=== PATIENT | female | born 1950 | race African-American/Black ===

== ENCOUNTER 2020-06-08 14:46 | Inpatient (IN) ==
[2020-06-08] MEDS ORDERED: GLUCAGON 1 MG VIAL IM PRN (16:53)
[2020-06-08] MEDS ORDERED: DEXTROSE 50% 25 GM/50 ML VIAL IV PRN (16:53)
[2020-06-08 17:26] LABS: Basophils % 0.5 % (0.0-0.8); Hematocrit 42.8 VOL% (35.7-47.0); Hemoglobin 14.7 GM/DL (12.0-16.0); Immature Granulocytes % 0.2 %; Immature Granulocytes Absolute 0.01 #; Lymphocytes # 0.6 10*3/uL (1.4-4.0); Mean Corpuscular HGB Conc 34.3 GM/DL (32-36); Mean Corpuscular Volume 82.3 FL (87-102); Monocytes % 13.7 % (1.7-12.7); NRBC # 0.02 10*3/uL; Neutrophils % 71.6 % (38.7-73.9); Platelet Count 78 T/CUMM (130-400); Red Cell Distribution Width 23.4 % (9.3-17.3); White Blood Count 4.2 T/CUMM (4-12)
[2020-06-08 17:45] LABS: Albumin 2.7 G/DL (3.4-5.0); Bilirubin,Total 3.9 MG/DL (0.2-1.0); Calcium 9.7 MG/DL (8.5-10.1); Osmolality,Calculated 290.1 MOS/KG (273-304); Potassium 4.2 MMOL/L (3.5-5.1); Total Protein 8.1 G/DL (6.4-8.3)
[2020-06-08] MEDS ORDERED: SODIUM CHLORIDE 0.9% 1,000 ML IV SCH (18:30)
[2020-06-08] MEDS: ENOXAPARIN 30 MG/0.3 ML SYRINGE SUBCUT SCH (20:31)
[2020-06-08 21:15] LABS: Troponin I 0.353 NG/ML (0.00-0.045)
[2020-06-08] MEDS: DEXTROSE 5% 1,000 ML IV SCH (23:04)
[2020-06-09 00:25] LABS: Troponin I 0.296 NG/ML (0.00-0.045)
[2020-06-09 02:59] LABS: Basophils % 0.6 % (0.0-0.8); Eosinophils % 0.3 % (0.00-10.9); Hematocrit 39.9 VOL% (35.7-47.0); Immature Granulocytes % 0.3 %; Immature Granulocytes Absolute 0.01 #; Lymphocytes # 0.5 10*3/uL (1.4-4.0); Lymphocytes % 13.1 % (21.3-54.2); Mean Corpuscular HGB Conc 35.1 GM/DL (32-36); Mean Corpuscular Volume 80.1 FL (87-102); Mean Platelet Volume 10.6 FL (9.6-12.0); Monocytes % 13.1 % (1.7-12.7); NRBC # 0.02 10*3/uL; Neutrophils % 72.6 % (38.7-73.9); Platelet Count 70 T/CUMM (130-400); Red Blood Count 4.98 MC/CUMM (3.8-5.5); Red Cell Distribution Width 22.9 % (9.3-17.3); White Blood Count 3.4 T/CUMM (4-12)
[2020-06-09 03:28] LABS: Albumin 2.6 G/DL (3.4-5.0); Bilirubin,Total 3.4 MG/DL (0.2-1.0); Calcium 9.4 MG/DL (8.5-10.1); Osmolality,Calculated 286.4 MOS/KG (273-304); Total Protein 7.6 G/DL (6.4-8.3)
[2020-06-09 09:18] LABS: Bilirubin,Urine Negative (Negative); Blood, Urine Negative (Negative); Glucose,Urine (UA) Negative (Negative); Hyaline Casts,Urine 12 /LPF (0-3); Ketones,Urine Negative (Negative); Mucus,Urine Occasional /LPF (Occasional); Nitrite,Urine Negative (Negative); Protein,Urine 30 MG/DL; RBC,Urine <1 /HPF (0-4); Squamous Epithelial Cell,Urine Occasional /HPF (0-10); Urine Appearance CLEAR (Clear); Urine Color Amber (Yellow); Urine Specific Gravity 1.012 (1.001-1.035); Urine Urobilinogen < 2.0 EU/DL (0.2-1.0); WBC,Urine <1 /HPF (0-6)
[2020-06-09] MEDS: DEXTROSE 5% 1,000 ML IV SCH (17:58)
[2020-06-09] MEDS ORDERED: SIMVASTATIN 40 MG TABLET PO SCH (21:00)
[2020-06-09] MEDS: LIOTHYRONINE 25 MCG TABLET PO SCH (21:52)
[2020-06-09] MEDS: ENOXAPARIN 30 MG/0.3 ML SYRINGE SUBCUT SCH (21:52)
[2020-06-10 06:15] LABS: Basophils % 0.8 % (0.0-0.8); Eosinophils % 0.3 % (0.00-10.9); Hematocrit 41.3 VOL% (35.7-47.0); Hemoglobin 14.6 GM/DL (12.0-16.0); Lymphocytes # 0.5 10*3/uL (1.4-4.0); Lymphocytes % 12.6 % (21.3-54.2); Mean Corpuscular HGB Conc 35.4 GM/DL (32-36); Mean Corpuscular Volume 81.1 FL (87-102); Monocytes % 13.2 % (1.7-12.7); Neutrophils % 73.1 % (38.7-73.9); Platelet Count 83 T/CUMM (130-400); Red Blood Count 5.09 MC/CUMM (3.8-5.5); White Blood Count 3.6 T/CUMM (4-12)
[2020-06-10 06:26] LABS: Troponin I 0.356 NG/ML (0.00-0.045)
[2020-06-10 06:39] LABS: Albumin 2.6 G/DL (3.4-5.0); Bilirubin,Total 3.8 MG/DL (0.2-1.0); Calcium 9.5 MG/DL (8.5-10.1); Osmolality,Calculated 280.7 MOS/KG (273-304); Potassium 3.7 MMOL/L (3.5-5.1)
[2020-06-10] MEDS: CHOLECALCIFEROL 1,000 UNIT TABLET PO SCH (09:44)
[2020-06-10] MEDS: LIOTHYRONINE 25 MCG TABLET PO SCH ×2 (09:46→21:06)
[2020-06-10 12:50] LABS: INR 1.3; PT Patient Result 13.9 SECS (9.8-11.9)
[2020-06-10] MEDS ORDERED: METOPROLOL TARTRATE 5 MG/5 ML VIAL IV ONE (13:58)
[2020-06-10] MEDS: SODIUM BICARB INJ 50 MEQ in DEXTROSE 5% NACL 0.22% 1,000 ML IV SCH (15:09)
[2020-06-10 16:58] LABS: RBC,Peritoneal Fluid > 100000 T/CUMM
[2020-06-10 20:51] LABS: Neutrophils,Peritoneal Fluid 44 %
[2020-06-10] MEDS ORDERED: cefTRIAXone 1,000 MG in SYRINGE 1 EACH IV ONE (21:00)
[2020-06-10] MEDS: VENLAFAXINE 75 MG TABLET PO SCH (21:06)
[2020-06-10] MEDS: ASCORBIC ACID 500 MG TABLET PO SCH (21:06)
[2020-06-11 07:12] LABS: Basophils % 0.8 % (0.0-0.8); Eosinophils % 1.1 % (0.00-10.9); Hematocrit 41.6 VOL% (35.7-47.0); Hemoglobin 14.5 GM/DL (12.0-16.0); Immature Granulocytes % 0.3 %; Immature Granulocytes Absolute 0.01 #; Lymphocytes # 0.4 10*3/uL (1.4-4.0); Lymphocytes % 11.8 % (21.3-54.2); Mean Corpuscular HGB Conc 34.9 GM/DL (32-36); Mean Corpuscular Volume 80.5 FL (87-102); Mean Platelet Volume 10.5 FL (9.6-12.0); Monocytes % 14.8 % (1.7-12.7); Neutrophils % 71.2 % (38.7-73.9); Platelet Count 81 T/CUMM (130-400); Red Blood Count 5.17 MC/CUMM (3.8-5.5); Red Cell Distribution Width 23.2 % (9.3-17.3); White Blood Count 3.6 T/CUMM (4-12)
[2020-06-11 07:29] LABS: Platelet Estimate Decreased; Target Cells 1+
[2020-06-11 07:30] LABS: Anisocytosis 2+; Macrocytosis 1+; Poikilocytosis Slight
[2020-06-11 07:37] LABS: Risk Ratio 2.45; Thyroid Stimulating Hormone 1.43 uIU/ml (0.358-3.74); VLDL CHOLESTEROL 12.8 MG/DL
[2020-06-11 07:40] LABS: Total Protein 7.3 G/DL (6.4-8.3); Uric Acid 12.2 MG/DL (2.6-6.0)
[2020-06-11 07:46] LABS: Albumin 2.2 G/DL (3.4-5.0); Bilirubin,Total 2.8 MG/DL (0.2-1.0); Calcium 8.8 MG/DL (8.5-10.1); Osmolality,Calculated 284.2 MOS/KG (273-304); Potassium 3.8 MMOL/L (3.5-5.1); Total Protein 7.1 G/DL (6.4-8.3)
[2020-06-11] MEDS ORDERED: COENZYME Q10 50 MG PO SCH (09:00)
[2020-06-11] MEDS: CHOLECALCIFEROL 1,000 UNIT TABLET PO SCH (09:16)
[2020-06-11] MEDS: LIOTHYRONINE 25 MCG TABLET PO SCH ×2 (09:16→21:57)
[2020-06-11] MEDS: ASCORBIC ACID 500 MG TABLET PO SCH ×2 (09:16→21:57)
[2020-06-11] MEDS: VENLAFAXINE 75 MG TABLET PO SCH ×2 (09:16→21:57)
[2020-06-11] MEDS ORDERED: APIXABAN 2.5 MG TABLET PO SCH (13:00)
[2020-06-11] MEDS: SODIUM BICARB INJ 50 MEQ in DEXTROSE 5% NACL 0.22% 1,000 ML IV SCH (14:23)
[2020-06-12 06:33] LABS: Basophils % 0.5 % (0.0-0.8); Hemoglobin 14.3 GM/DL (12.0-16.0); Immature Granulocytes % 0.3 %; Immature Granulocytes Absolute 0.01 #; Lymphocytes # 0.4 10*3/uL (1.4-4.0); Lymphocytes % 11.1 % (21.3-54.2); Mean Corpuscular HGB Conc 34.9 GM/DL (32-36); Mean Corpuscular Volume 81.8 FL (87-102); Mean Platelet Volume 10.1 FL (9.6-12.0); Monocytes % 14.7 % (1.7-12.7); Neutrophils % 72.4 % (38.7-73.9); Platelet Count 84 T/CUMM (130-400); Red Blood Count 5.01 MC/CUMM (3.8-5.5); Red Cell Distribution Width 23.3 % (9.3-17.3); White Blood Count 3.9 T/CUMM (4-12)
[2020-06-12 06:55] LABS: Osmolality,Calculated 277.5 MOS/KG (273-304)
[2020-06-12 07:11] LABS: Hypochromasia 1+; Microcytosis 1+; Platelet Estimate Decreased
[2020-06-12] MEDS: VENLAFAXINE 75 MG TABLET PO SCH ×2 (08:36→20:45)
[2020-06-12] MEDS: SODIUM BICARB INJ 50 MEQ in DEXTROSE 5% NACL 0.22% 1,000 ML IV SCH (08:36)
[2020-06-12] MEDS: CHOLECALCIFEROL 1,000 UNIT TABLET PO SCH (08:36)
[2020-06-12] MEDS: LIOTHYRONINE 25 MCG TABLET PO SCH ×2 (08:36→20:46)
[2020-06-12] MEDS: ASCORBIC ACID 500 MG TABLET PO SCH ×2 (08:36→20:45)
[2020-06-12 09:40] LABS: Immunoglobulin A (Chem) 998 MG/DL (70-400); Immunoglobulin G (Chem) 1350 MG/DL (700-1600); Immunoglobulin M (Chem) 181 MG/DL (40-230); Total Protein (Chem) 7.3 G/DL (6.4-8.3)
[2020-06-12 11:08] LABS: Albumin (SPE) 3.5 G/DL (3.2-5.3); Albumin (SPE) Rel % 48.3 %; Alpha 1 (SPE) 0.2 G/DL (0.1-0.4); Alpha 1 (SPE) Rel % 3.1 %; Alpha 2 (SPE) 0.5 G/DL (0.4-1.0); Alpha 2 (SPE) Rel % 6.4 %; Beta (SPE) 0.8 G/DL (0.5-1.1); Beta (SPE) Rel % 10.3 %; Gamma (SPE) 2.3 G/DL (0.7-1.7); Gamma (SPE) Rel % 31.9 %
[2020-06-13] MEDS ORDERED: ONDANSETRON 4 MG/2 ML VIAL IV PRN (00:08)
[2020-06-13 06:10] LABS: Basophils % 0.8 % (0.0-0.8); Eosinophils # 0.1 10*3/uL (0.0-0.87); Eosinophils % 1.4 % (0.00-10.9); Hematocrit 42.2 VOL% (35.7-47.0); Hemoglobin 14.6 GM/DL (12.0-16.0); Immature Granulocytes % 0.3 %; Immature Granulocytes Absolute 0.01 #; Lymphocytes # 0.5 10*3/uL (1.4-4.0); Lymphocytes % 12.8 % (21.3-54.2); Mean Corpuscular HGB Conc 34.6 GM/DL (32-36); Mean Corpuscular Volume 82.1 FL (87-102); Mean Platelet Volume 10.2 FL (9.6-12.0); Monocytes % 13.6 % (1.7-12.7); Neutrophils % 71.1 % (38.7-73.9); Platelet Count 91 T/CUMM (130-400); Red Blood Count 5.14 MC/CUMM (3.8-5.5); Red Cell Distribution Width 23.1 % (9.3-17.3); White Blood Count 3.7 T/CUMM (4-12)
[2020-06-13 06:37] LABS: Calcium 8.5 MG/DL (8.5-10.1); Osmolality,Calculated 274.5 MOS/KG (273-304); Potassium 4.2 MMOL/L (3.5-5.1)
[2020-06-13 07:04] LABS: Platelet Estimate Decreased
[2020-06-13 07:05] LABS: Anisocytosis 2+; Burr Cells Few; Poikilocytosis Slight; Spherocytes Few; Target Cells 1+
[2020-06-13] MEDS: ASCORBIC ACID 500 MG TABLET PO SCH ×2 (08:30→21:11)
[2020-06-13] MEDS: CHOLECALCIFEROL 1,000 UNIT TABLET PO SCH (08:31)
[2020-06-13] MEDS: LIOTHYRONINE 25 MCG TABLET PO SCH ×2 (08:31→21:11)
[2020-06-13] MEDS: VENLAFAXINE 75 MG TABLET PO SCH ×2 (08:31→21:11)
[2020-06-13] MEDS ORDERED: AMIODARONE INJ 150 MG in DEXTROSE 5% 100 ML IV ONE (09:59)
[2020-06-13] MEDS ORDERED: AMIODARONE INJ 450 MG in DEXTROSE 5% 241 ML IV SCH (10:00)
[2020-06-13] MEDS: PANTOPRAZOLE 40 MG TABLET PO SCH ×2 (10:33→21:11)
[2020-06-13] MEDS: AMIODARONE INJ 450 MG in DEXTROSE 5% 241 ML IV SCH (16:10)
[2020-06-14] MEDS: AMIODARONE INJ 450 MG in DEXTROSE 5% 241 ML IV SCH ×2 (07:06→22:00)
[2020-06-14 07:46] LABS: Basophils % 0.4 % (0.0-0.8); Hemoglobin 15.6 GM/DL (12.0-16.0); Immature Granulocytes % 0.7 %; Immature Granulocytes Absolute 0.03 #; Lymphocytes # 0.7 10*3/uL (1.4-4.0); Lymphocytes % 16.3 % (21.3-54.2); Mean Corpuscular HGB Conc 34.7 GM/DL (32-36); Mean Corpuscular Volume 82.4 FL (87-102); Mean Platelet Volume 10.6 FL (9.6-12.0); Monocytes % 13.8 % (1.7-12.7); NRBC # 0.02 10*3/uL; Neutrophils % 68.8 % (38.7-73.9); Platelet Count 95 T/CUMM (130-400); Red Blood Count 5.46 MC/CUMM (3.8-5.5); Red Cell Distribution Width 23.2 % (9.3-17.3); White Blood Count 4.5 T/CUMM (4-12)
[2020-06-14] MEDS: PANTOPRAZOLE 40 MG TABLET PO SCH ×2 (08:43→20:10)
[2020-06-14] MEDS: VENLAFAXINE 75 MG TABLET PO SCH ×2 (08:43→20:11)
[2020-06-14] MEDS: LIOTHYRONINE 25 MCG TABLET PO SCH ×2 (08:43→20:10)
[2020-06-14] MEDS: CHOLECALCIFEROL 1,000 UNIT TABLET PO SCH (08:43)
[2020-06-14] MEDS: ASCORBIC ACID 500 MG TABLET PO SCH ×2 (08:43→20:11)
[2020-06-14] MEDS: AMIODARONE 200 MG TABLET PO SCH (08:44)
[2020-06-14 09:54] LABS: Osmolality,Calculated 265.2 MOS/KG (273-304); Potassium 5.1 MMOL/L (3.5-5.1)
[2020-06-14 10:09] LABS: Immuno Free Light Chain Kappa 12.21 MG/DL (0.33-1.94); Immuno Free Light Chain Lambda 10.62 MG/DL (0.57-2.63); Immuno Free Light Chain Ratio 1.15 MG/DL (0.26-1.65)
[2020-06-14 10:17] LABS: Hemoglobin A1 (Alkaline) 63.3 % (96.5-98.5); Hemoglobin A2 (Alkaline) 1.7 % (1.5-3.5)
[2020-06-14] MEDS: CETIRIZINE 10 MG TABLET PO SCH (12:56)
[2020-06-15] MEDS: PANTOPRAZOLE 40 MG TABLET PO SCH (08:59)
[2020-06-15] MEDS: VENLAFAXINE 75 MG TABLET PO SCH (08:59)
[2020-06-15] MEDS: LIOTHYRONINE 25 MCG TABLET PO SCH (09:00)
[2020-06-15] MEDS: ASCORBIC ACID 500 MG TABLET PO SCH (09:00)
[2020-06-15] MEDS: CHOLECALCIFEROL 1,000 UNIT TABLET PO SCH (09:00)
[2020-06-15] MEDS: CETIRIZINE 10 MG TABLET PO SCH (09:01)
[2020-06-15] MEDS: AMIODARONE 200 MG TABLET PO SCH (09:01)
[2020-06-15 13:16] VITALS: BP 84/58
[2020-06-15] MEDS: AMIODARONE INJ 450 MG in DEXTROSE 5% 241 ML IV SCH (14:49)
== END 2020-06-15 16:07 | disposition home health service (06) | DRG 683 ==
LOC: N.TELEN → SUATTDRO 16:07
PROVIDERS: ADMIT Internal Medicine; ATTEND Hospitalist

== ENCOUNTER 2020-06-24 03:57 | Inpatient (IN) ==
[2020-06-24] MEDS ORDERED: ASPIRIN 325 MG TABLET PO STA (04:10)
[2020-06-24] MEDS ORDERED: SODIUM CHLORIDE 0.9% 1,000 ML IV STA (04:10)
[2020-06-24] MEDS ORDERED: ONDANSETRON 4 MG/2 ML VIAL IV ONE (04:30)
[2020-06-24] MEDS ORDERED: AMIODARONE INJ 150 MG in DEXTROSE 5% 100 ML IV ONE (04:30)
[2020-06-24 04:37] LABS: Hematocrit 46.6 VOL% (35.7-47.0); Hemoglobin 16.8 GM/DL (12.0-16.0); Immature Granulocytes % 0.3 %; Immature Granulocytes Absolute 0.02 #; Lymphocytes # 0.4 10*3/uL (1.4-4.0); Lymphocytes % 5.2 % (21.3-54.2); Mean Corpuscular HGB Conc 36.1 GM/DL (32-36); Mean Corpuscular Volume 80.2 FL (87-102); Mean Platelet Volume 9.8 FL (9.6-12.0); Monocytes % 7.1 % (1.7-12.7); NRBC # 0.02 10*3/uL; Neutrophils % 87.4 % (38.7-73.9); Platelet Count 131 T/CUMM (130-400); Red Blood Count 5.81 MC/CUMM (3.8-5.5); Red Cell Distribution Width 22.6 % (9.3-17.3); White Blood Count 7.2 T/CUMM (4-12)
[2020-06-24 04:52] LABS: INR 1.3; PT Patient Result 13.7 SECS (9.8-11.9)
[2020-06-24 05:02] LABS: Albumin 2.3 G/DL (3.4-5.0); Bilirubin,Total 3.4 MG/DL (0.2-1.0); Calcium 9.5 MG/DL (8.5-10.1); Osmolality,Calculated 283.8 MOS/KG (273-304); Total Protein 7.6 G/DL (6.4-8.3)
[2020-06-24 05:26] LABS: Bacteria,Urine Occasional /HPF (Few); Bilirubin,Urine Negative (Negative); Blood, Urine Negative (Negative); Glucose,Urine (UA) Negative (Negative); Hyaline Casts,Urine 1 /LPF (0-3); Ketones,Urine Negative (Negative); Mucus,Urine Occasional /LPF (Occasional); Nitrite,Urine Negative (Negative); Protein,Urine Negative; RBC,Urine 7 /HPF (0-4); Urine Appearance CLEAR (Clear); Urine Color Amber (Yellow); Urine Specific Gravity 1.012 (1.001-1.035); Urine Urobilinogen < 2.0 EU/DL (0.2-1.0); WBC,Urine <1 /HPF (0-6)
[2020-06-24] MEDS ORDERED: ACETAMINOPHEN 325 MG TABLET PO PRN (06:23)
[2020-06-24] MEDS ORDERED: GLUCAGON 1 MG VIAL IM PRN (06:23)
[2020-06-24] MEDS ORDERED: hydrALAZINE 20 MG/1 ML VIAL IV PRN (06:23)
[2020-06-24] MEDS ORDERED: ALUMINUM/MAGNES/SIMETH MAX STR 30 ML UDCUP PO PRN (06:23)
[2020-06-24] MEDS ORDERED: diphenhydrAMINE CAP 25 MG CAPSULE PO PRN (06:23)
[2020-06-24] MEDS ORDERED: MORPHINE 4 MG/1 ML VIAL IV PRN (06:23)
[2020-06-24] MEDS ORDERED: NICOTINE 21 MG/24 HR PATCH TRANSDERM PRN (06:23)
[2020-06-24] MEDS: ONDANSETRON 4 MG/2 ML VIAL IV PRN (14:30)
[2020-06-24] MEDS ORDERED: oxyCODONE IR 5 MG TABLET PO PRN (16:09)
[2020-06-24] MEDS ORDERED: COLCHICINE 0.6 MG CAPSULE PO PRN (16:09)
[2020-06-24] MEDS ORDERED: DILTIAZEM 50 MG/10 ML VIAL IV STA (19:59)
[2020-06-24] MEDS ORDERED: SIMVASTATIN 40 MG TABLET PO SCH (21:00)
[2020-06-24] MEDS: ASCORBIC ACID 500 MG TABLET PO SCH (22:13)
[2020-06-24] MEDS: LIOTHYRONINE 25 MCG TABLET PO SCH (22:14)
[2020-06-24] MEDS: MAGNESIUM OXIDE 400 MG TABLET PO SCH (22:14)
[2020-06-24] MEDS: VENLAFAXINE 100 MG TABLET PO SCH (22:17)
[2020-06-25] MEDS: ONDANSETRON 4 MG/2 ML VIAL IV PRN ×3 (00:58→23:14)
[2020-06-25 03:25] LABS: Albumin 2.3 G/DL (3.4-5.0); Bilirubin,Total 3.6 MG/DL (0.2-1.0); Calcium 9.1 MG/DL (8.5-10.1); Osmolality,Calculated 273.5 MOS/KG (273-304); Total Protein 7.5 G/DL (6.4-8.3)
[2020-06-25 05:59] LABS: Hematocrit 45.5 VOL% (35.7-47.0); Hemoglobin 16.3 GM/DL (12.0-16.0); Immature Granulocytes % 0.7 %; Immature Granulocytes Absolute 0.07 #; Lymphocytes # 0.3 10*3/uL (1.4-4.0); Lymphocytes % 3.4 % (21.3-54.2); Mean Corpuscular HGB Conc 35.8 GM/DL (32-36); Mean Corpuscular Volume 80.7 FL (87-102); Mean Platelet Volume 9.7 FL (9.6-12.0); Monocytes % 6.8 % (1.7-12.7); NRBC # 0.02 10*3/uL; Neutrophils % 89.1 % (38.7-73.9); Platelet Count 108 T/CUMM (130-400); Red Blood Count 5.64 MC/CUMM (3.8-5.5); Red Cell Distribution Width 22.6 % (9.3-17.3); White Blood Count 9.5 T/CUMM (4-12)
[2020-06-25 06:05] LABS: INR 1.3
[2020-06-25 06:25] LABS: Lymphocytes 3 % (20-55); Platelet Estimate Decreased; Segmented Neutrophils 92 % (50-85); Target Cells Few; Total Cells Counted 100
[2020-06-25] MEDS ORDERED: ASPIRIN 325 MG TABLET PO SCH (09:00)
[2020-06-25] MEDS ORDERED: PANTOPRAZOLE 40 MG TABLET PO SCH (09:00)
[2020-06-25] MEDS ORDERED: cefTRIAXone 2,000 MG in SODIUM CHLORIDE 0.9% 100 ML IV SCH (09:00)
[2020-06-25] MEDS ORDERED: cefTAZidime 2,000 MG in SYRINGE 1 EACH IV SCH (09:00)
[2020-06-25] MEDS: DICLOFENAC 1% GEL 100 GM TUBE TOP SCH (09:40)
[2020-06-25] MEDS: SODIUM CHLORIDE 0.9% 1,000 ML IV SCH (14:10)
[2020-06-25] MEDS: CALCIUM (CARBONATE) 600 MG TABLET PO SCH (14:11)
[2020-06-25] MEDS: LIOTHYRONINE 25 MCG TABLET PO SCH ×2 (14:11→21:20)
[2020-06-25] MEDS: VENLAFAXINE 100 MG TABLET PO SCH ×2 (14:12→21:21)
[2020-06-25] MEDS: MAGNESIUM OXIDE 400 MG TABLET PO SCH ×2 (14:12→21:20)
[2020-06-25] MEDS: ASCORBIC ACID 500 MG TABLET PO SCH ×2 (14:12→21:21)
[2020-06-25] MEDS: FUROSEMIDE 40 MG TABLET PO SCH (14:12)
[2020-06-25] MEDS ORDERED: DIGOXIN 0.5 MG/2 ML AMP IV ONE (14:20)
[2020-06-25] MEDS: AMIODARONE 200 MG TABLET PO SCH (14:40)
[2020-06-25] MEDS: ASPIRIN CHEW 81 MG TABLET PO SCH (14:40)
[2020-06-25] MEDS: CHOLECALCIFEROL 1,000 UNIT TABLET PO SCH (14:40)
[2020-06-25] MEDS: ALBUMIN 25% 12.5 GM in PREMIX 1 EACH IV SCH ×2 (14:41→22:38)
[2020-06-25] MEDS ORDERED: AMIODARONE INJ 450 MG in DEXTROSE 5% 241 ML IV SCH (16:00)
[2020-06-25] MEDS ORDERED: MIRTAZAPINE 15 MG TABLET PO SCH (21:00)
[2020-06-25] MEDS: PANTOPRAZOLE 40 MG VIAL IV SCH (21:19)
[2020-06-25] MEDS: AMIODARONE INJ 450 MG in DEXTROSE 5% 241 ML IV SCH (22:50)
[2020-06-26] MEDS: SODIUM CHLORIDE 0.9% 1,000 ML IV SCH ×2 (01:54→15:45)
[2020-06-26 05:45] LABS: Basophils % 0.2 % (0.0-0.8); Hemoglobin 14.6 GM/DL (12.0-16.0); Immature Granulocytes % 0.3 %; Immature Granulocytes Absolute 0.02 #; Lymphocytes # 0.3 10*3/uL (1.4-4.0); Lymphocytes % 3.8 % (21.3-54.2); Mean Corpuscular HGB Conc 34.8 GM/DL (32-36); Mean Corpuscular Volume 81.9 FL (87-102); Monocytes % 7.2 % (1.7-12.7); NRBC # 0.07 10*3/uL; Neutrophils % 88.5 % (38.7-73.9); Platelet Count 115 T/CUMM (130-400); Red Blood Count 5.13 MC/CUMM (3.8-5.5); Red Cell Distribution Width 22.2 % (9.3-17.3); White Blood Count 6.5 T/CUMM (4-12)
[2020-06-26] MEDS: ALBUMIN 25% 12.5 GM in PREMIX 1 EACH IV SCH (05:52)
[2020-06-26 06:14] LABS: Band Neutrophils 2 % (0-10); Lymphocytes 3 % (20-55); Nucleated Red Blood Cells 3 (0-5); Platelet Estimate Decreased; Segmented Neutrophils 89 % (50-85); Total Cells Counted 100
[2020-06-26 06:17] LABS: Albumin 2.5 G/DL (3.4-5.0); Bilirubin,Total 4.8 MG/DL (0.2-1.0); Calcium 9.5 MG/DL (8.5-10.1); Osmolality,Calculated 279.1 MOS/KG (273-304); Total Protein 7.6 G/DL (6.4-8.3)
[2020-06-26 06:40] LABS: Calcium 9.5 MG/DL (8.5-10.1); Osmolality,Calculated 277.2 MOS/KG (273-304)
[2020-06-26] MEDS ORDERED: MIRTAZAPINE 15 MG TABLET PO SCH (06:50)
[2020-06-26] MEDS: PANTOPRAZOLE 40 MG VIAL IV SCH ×2 (10:20→20:39)
[2020-06-26] MEDS: ASPIRIN CHEW 81 MG TABLET PO SCH (10:21)
[2020-06-26] MEDS: CALCIUM (CARBONATE) 600 MG TABLET PO SCH (10:21)
[2020-06-26] MEDS: FUROSEMIDE 40 MG TABLET PO SCH (10:23)
[2020-06-26] MEDS: AMIODARONE 200 MG TABLET PO SCH (10:24)
[2020-06-26] MEDS: CHOLECALCIFEROL 1,000 UNIT TABLET PO SCH (10:26)
[2020-06-26] MEDS: ASCORBIC ACID 500 MG TABLET PO SCH ×2 (10:26→20:38)
[2020-06-26] MEDS: DICLOFENAC 1% GEL 100 GM TUBE TOP SCH (10:26)
[2020-06-26] MEDS: VENLAFAXINE 100 MG TABLET PO SCH ×2 (10:27→20:38)
[2020-06-26] MEDS: MAGNESIUM OXIDE 400 MG TABLET PO SCH (10:27)
[2020-06-26] MEDS: LIOTHYRONINE 25 MCG TABLET PO SCH ×2 (10:31→20:38)
[2020-06-26 10:40] LABS: Neutrophils,Peritoneal Fluid 94 %
[2020-06-26] MEDS: DEXTROSE 50% 25 GM/50 ML VIAL IV PRN ×2 (10:45→16:02)
[2020-06-26 10:53] LABS: RBC,Peritoneal Fluid 40990 T/CUMM
[2020-06-26] MEDS ORDERED: SODIUM CHLORIDE 0.9% 500 ML IV ONE (11:56)
[2020-06-26] MEDS: AMIODARONE INJ 450 MG in DEXTROSE 5% 241 ML IV SCH (12:20)
[2020-06-26] MEDS ORDERED: ALBUMIN 25% 50 GM in PREMIX 1 EACH IV ONE (13:00)
[2020-06-26] MEDS ORDERED: NOREPINEPHRINE 4 MG/4 ML VIAL IV ONE (13:40)
[2020-06-26] MEDS ORDERED: SODIUM CHLORIDE 0.9% 1,000 ML IV ONE (13:49)
[2020-06-26] MEDS: NOREPINEPHRINE 8 MG in SODIUM CHLORIDE 0.9% 242 ML IV PRN (14:52)
[2020-06-26 15:45] LABS: Calcium 9.1 MG/DL (8.5-10.1); Osmolality,Calculated 280.1 MOS/KG (273-304)
[2020-06-26 15:46] LABS: Basophils % 0.2 % (0.0-0.8); Hematocrit 41.8 VOL% (35.7-47.0); Immature Granulocytes % 0.4 %; Immature Granulocytes Absolute 0.05 #; Lymphocytes # 0.3 10*3/uL (1.4-4.0); Lymphocytes % 2.2 % (21.3-54.2); Mean Corpuscular HGB Conc 33.5 GM/DL (32-36); Mean Corpuscular Volume 86.2 FL (87-102); Mean Platelet Volume 10.5 FL (9.6-12.0); Monocytes % 8.2 % (1.7-12.7); NRBC # 0.14 10*3/uL; Platelet Count 92 T/CUMM (130-400); Red Blood Count 4.85 MC/CUMM (3.8-5.5); Red Cell Distribution Width 22.8 % (9.3-17.3); White Blood Count 11.3 T/CUMM (4-12)
[2020-06-26 15:52] LABS: INR 1.8; PT Patient Result 19.1 SECS (9.8-11.9)
[2020-06-26] MEDS ORDERED: DEXTROSE 5% NACL 0.9% 1,000 ML IV SCH (16:00)
[2020-06-26 16:37] LABS: Nucleated Red Blood Cells 2 (0-5)
[2020-06-26 16:39] LABS: Anisocytosis 1+; Band Neutrophils 400 % (0-10); Burr Cells Few; Lymphocytes 500 % (20-55); Segmented Neutrophils 8000 % (50-85); Total Cells Counted 10000
[2020-06-26 16:40] LABS: Ovalocytes Few; Platelet Estimate Decreased; Target Cells Few
[2020-06-26 17:31] LABS: Bilirubin,Urine Negative (Negative); Blood, Urine Moderate mg/dL (Negative); Glucose,Urine (UA) Negative (Negative); Hyaline Casts,Urine 38 /LPF (0-3); Ketones,Urine 5 mg/dL (Negative); Mucus,Urine Occasional /LPF (Occasional); Nitrite,Urine Negative (Negative); Protein,Urine Negative; RBC,Urine 23 /HPF (0-4); Squamous Epithelial Cell,Urine Occasional /HPF (0-10); Urine Appearance Slightly Hazy (Clear); Urine Color Amber (Yellow); Urine Specific Gravity 1.015 (1.001-1.035); Urine Urobilinogen < 2.0 EU/DL (0.2-1.0); WBC,Urine 1 /HPF (0-6)
[2020-06-26] MEDS: SODIUM BICARB INJ 100 MEQ in DEXTROSE 5% 1,000 ML IV SCH (17:31)
[2020-06-27 05:38] LABS: Basophils % 0.3 % (0.0-0.8); Hematocrit 40.1 VOL% (35.7-47.0); Hemoglobin 14.2 GM/DL (12.0-16.0); Immature Granulocytes % 0.4 %; Immature Granulocytes Absolute 0.04 #; Lymphocytes # 0.2 10*3/uL (1.4-4.0); Lymphocytes % 1.9 % (21.3-54.2); Mean Corpuscular HGB Conc 35.4 GM/DL (32-36); Mean Corpuscular Volume 82.2 FL (87-102); Mean Platelet Volume 11.2 FL (9.6-12.0); Monocytes % 7.4 % (1.7-12.7); NRBC # 0.18 10*3/uL; Platelet Count 87 T/CUMM (130-400); Red Blood Count 4.88 MC/CUMM (3.8-5.5); Red Cell Distribution Width 21.9 % (9.3-17.3); White Blood Count 11.1 T/CUMM (4-12)
[2020-06-27 05:54] LABS: Calcium 8.5 MG/DL (8.5-10.1); Osmolality,Calculated 283.1 MOS/KG (273-304)
[2020-06-27 06:05] LABS: Band Neutrophils 8 % (0-10); Lymphocytes 2 % (20-55); Nucleated Red Blood Cells 2 (0-5); Segmented Neutrophils 83 % (50-85); Total Cells Counted 100
[2020-06-27 06:06] LABS: Burr Cells Few; Hypochromasia 1+; Target Cells Few
[2020-06-27 06:07] LABS: Microcytosis 1+; Platelet Estimate Decreased; Polychromasia Slight
[2020-06-27] MEDS: SODIUM BICARB INJ 100 MEQ in DEXTROSE 5% 1,000 ML IV SCH ×2 (07:47→08:25)
[2020-06-27] MEDS: ONDANSETRON 4 MG/2 ML VIAL IV PRN (08:43)
[2020-06-27] MEDS: DICLOFENAC 1% GEL 100 GM TUBE TOP SCH (08:43)
[2020-06-27] MEDS: PANTOPRAZOLE 40 MG VIAL IV SCH ×2 (09:08→20:55)
[2020-06-27] MEDS: ASPIRIN CHEW 81 MG TABLET PO SCH (09:12)
[2020-06-27] MEDS: CALCIUM (CARBONATE) 600 MG TABLET PO SCH (09:12)
[2020-06-27] MEDS: AMIODARONE 200 MG TABLET PO SCH (09:13)
[2020-06-27] MEDS: ASCORBIC ACID 500 MG TABLET PO SCH ×2 (09:14→20:51)
[2020-06-27] MEDS: LIOTHYRONINE 25 MCG TABLET PO SCH ×2 (09:14→20:51)
[2020-06-27] MEDS: CHOLECALCIFEROL 1,000 UNIT TABLET PO SCH (09:14)
[2020-06-27] MEDS: VENLAFAXINE 100 MG TABLET PO SCH ×2 (09:14→20:51)
[2020-06-27] MEDS ORDERED: SODIUM BICARB INJ 100 MEQ in DEXTROSE 5% 1,000 ML IV SCH (11:13)
[2020-06-28 05:13] LABS: Basophils % 0.3 % (0.0-0.8); Eosinophils % 0.4 % (0.00-10.9); Hematocrit 38.9 VOL% (35.7-47.0); Hemoglobin 13.8 GM/DL (12.0-16.0); Immature Granulocytes % 0.9 %; Immature Granulocytes Absolute 0.08 #; Lymphocytes # 0.2 10*3/uL (1.4-4.0); Lymphocytes % 2.6 % (21.3-54.2); Mean Corpuscular HGB Conc 35.5 GM/DL (32-36); Mean Corpuscular Volume 80.9 FL (87-102); Mean Platelet Volume 10.7 FL (9.6-12.0); Monocytes % 7.1 % (1.7-12.7); NRBC # 0.14 10*3/uL; Neutrophils % 88.7 % (38.7-73.9); Red Blood Count 4.81 MC/CUMM (3.8-5.5); Red Cell Distribution Width 21.9 % (9.3-17.3); White Blood Count 9.1 T/CUMM (4-12)
[2020-06-28 05:20] LABS: Platelet Count 59 T/CUMM (130-400)
[2020-06-28 05:30] LABS: Albumin 2.4 G/DL (3.4-5.0); Bilirubin,Direct 2.55 MG/DL (0.0-0.20); Bilirubin,Indirect 1.7 MG/DL (0.0-1.0); Bilirubin,Total 4.2 MG/DL (0.2-1.0); Total Protein 6.5 G/DL (6.4-8.3)
[2020-06-28 05:35] LABS: Band Neutrophils 6 % (0-10); Calcium 8.5 MG/DL (8.5-10.1); Hypochromasia 1+; Lymphocytes 6 % (20-55); Microcytosis 1+; Nucleated Red Blood Cells 1 (0-5); Osmolality,Calculated 283.9 MOS/KG (273-304); Segmented Neutrophils 82 % (50-85); Target Cells Few; Total Cells Counted 100
[2020-06-28 05:36] LABS: Burr Cells Few; Platelet Estimate Decreased; Polychromasia Slight
[2020-06-28] MEDS ORDERED: ACETAMINOPHEN 500 MG TABLET PO PRN (07:50)
[2020-06-28] MEDS: LIOTHYRONINE 25 MCG TABLET PO SCH ×2 (09:42→20:32)
[2020-06-28] MEDS: AMIODARONE 200 MG TABLET PO SCH (09:42)
[2020-06-28] MEDS: ASCORBIC ACID 500 MG TABLET PO SCH ×2 (09:42→20:33)
[2020-06-28] MEDS: PANTOPRAZOLE 40 MG VIAL IV SCH ×2 (09:42→21:16)
[2020-06-28] MEDS: ASPIRIN CHEW 81 MG TABLET PO SCH (09:42)
[2020-06-28] MEDS: VENLAFAXINE 100 MG TABLET PO SCH ×2 (09:42→20:32)
[2020-06-28] MEDS: CALCIUM (CARBONATE) 600 MG TABLET PO SCH (09:42)
[2020-06-28] MEDS: CHOLECALCIFEROL 1,000 UNIT TABLET PO SCH (09:42)
[2020-06-28] MEDS: DICLOFENAC 1% GEL 100 GM TUBE TOP SCH (09:43)
[2020-06-28] MEDS: SODIUM BICARB INJ 100 MEQ in DEXTROSE 5% 1,000 ML IV SCH (10:10)
[2020-06-28] MEDS: HYDROCORTISONE 100 MG VIAL IV SCH ×2 (14:40→21:17)
[2020-06-28 18:03] VITALS: BP 89/66
[2020-06-28] MEDS: NOREPINEPHRINE 8 MG in SODIUM CHLORIDE 0.9% 242 ML IV PRN (23:01)
[2020-06-29] MEDS: DEXTROSE 50% 25 GM/50 ML VIAL IV PRN (02:30)
[2020-06-29] MEDS: HYDROCORTISONE 100 MG VIAL IV SCH (03:30)
[2020-06-29] MEDS ORDERED: MORPHINE 4 MG/1 ML VIAL IV PRN (05:42)
== END 2020-06-29 06:22 | disposition expired | DRG 308 ==
LOC: N.ED 03:57 → N.EDINP 03:57 → N.TELES 20:28 → SUATTDRO 06-25 12:38 → N.ICU 06-26 13:34 → N.CVR 06-27 19:09 → N.ICU 06-28 18:31
PROVIDERS: ADMIT Internal Medicine; ATTEND Internal Medicine